=== PATIENT | male | born 1970 | race American Indian/Alaskan Native ===

== ENCOUNTER 2017-11-28 05:13 | Emergency (ER) | payer SELFPAY ==
[2017-11-28] MEDS ORDERED: NORCO 5/325 PO ONE (06:32)
--- NOTE | 2017-11-28 06:36 | Emergency Department Report ---
HPI - General Chief Complaint: Fall Time Seen by Provider: 11/28/17 06:27 - HPI HPI: Room 1 The patient is a 47-year-old male presented with a chief complaint of head pain after fall. The patient states at approximately 03:00 this morning he tripped over a hose and fell forward striking his head concrete. The patient admits to brief loss of consciousness. Patient gets his pain score 8/10. The patient states his last tetanus shot was 2 years ago. Patient denies any other complaints Location: Head Duration: [See above] Quality: Pain Severity: 8/10 Modifying factors: [see above] Context: [see above] Mode of transportation: [not driving] ED Past Medical Hx - Past Medical History Previous Medical History?: Yes Hx Hypertension: Yes - Family History Family history: no significant - Social History Smoking Status: Never Smoker Substance Use Type: None (denies illicit drug use), Alcohol (occasional) - Medications Home Medications: Home Medications Medication Instructions Recorded Confirmed Last Taken Type HYDROcodone/APAP 5-325 [[place] 1 - 2 each PO Q6HR PRN #7 tablet 11/28/17 Unknown Rx 5/325] Ibuprofen [Motrin 800 MG tab] 800 mg PO Q8HR PRN #20 tablet 11/28/17 Unknown Rx ED Review of Systems ROS: Stated complaint: FALL/HEAD LACERATION Other details as noted in HPI Constitutional: no symptoms reported Eyes: denies: eye pain ENT: denies: throat pain Respiratory: no symptoms reported Cardiovascular: denies: chest pain Endocrine: no symptoms reported Gastrointestinal: denies: abdominal pain Genitourinary: denies: dysuria Musculoskeletal: arthralgia Neurological: headache Physical Exam - Physical Exam Vital Signs: Vital Signs 11/28/17 11/28/17 11/28/17 05:38 05:45 06:07 Pulse Rate 72 72 Respiratory 15 15 18 Rate Blood Pressure 143/102 O2 Sat by Pulse 92 99 Oximetry Physical Exam: GENERAL: The patient is well-developed well-nourished male lying on stretcher not appearing to be in acute distress. [] HEENT: Normocephalic. Approximately 2.5 cm laceration to the mid forehead; hemostatic. Extraocular motions are intact. Patient has moist mucous membranes. NECK: Supple. There is no axial step off or tenderness but there is pain with range of motion CHEST/LUNGS: Clear to auscultation. There is no respiratory distress noted. HEART/CARDIOVASCULAR: Regular. There is no tachycardia. There is no gallop rub or murmur. ABDOMEN: Abdomen is soft, nontender. Patient has normal bowel sounds. There is no abdominal distention. SKIN: There is no rash. There is no edema. There is no diaphoresis. 2.5cm laceration to the midforehead NEURO: The patient is awake, alert, and oriented. The patient is cooperative. The patient has normal speech MUSCULOSKELETAL: There is no tenderness or deformity. ED Course Vital Signs 11/28/17 11/28/17 11/28/17 05:38 05:45 06:07 Pulse Rate 72 72 Respiratory 15 15 18 Rate Blood Pressure 143/102 O2 Sat by Pulse 92 99 Oximetry - Laceration /Wound Repair Face Wound Location: head Wound Length (cm): 3 Wound's Depth, Shape: linear Wound Explored: clean Irrigated w/ Saline (ccs): 250 Betadine Prep?: Yes Anesthesia: Lidocaine w/ Epi Volume Anesthetic (ccs): 5 Wound Repaired With: sutures Suture Size/Type: 5:0, nylon Number of Sutures: 4 Layer Closure?: No Sterile Dressing Applied?: Yes ED Medical Decision Making - Radiology Data Radiology results: report reviewed (CT head, CT cervical spine), image reviewed (CT head, CT cervical spine) [address] [address] Cat Scan Report Signed Patient: JHONY WOLF MR#: [id number] : 1970 Acct:[id number] Age/Sex: 47 / M ADM Date: 11/28/17 Loc: ED Attending Dr: Ordering Physician: MELINDA ROLDAN MD Date of Service: 11/28/17 Procedure(s): CT head/brain wo con Accession Number(s): [id number] cc: MELINDA ROLDAN MD FINAL REPORT PROCEDURE: CT HEAD/BRAIN WO CON TECHNIQUE: Computerized tomography of the head was performed without contrast material. HISTORY: S/P fall with poss LOC COMPARISON: No prior studies are available for comparison. FINDINGS: Skull and scalp: There is slight soft tissue swelling the left frontal region of the skull. No skull fracture.. Paranasal sinuses: Normal. Ventricles and subarachnoid spaces: Normal. Cerebrum: No evidence of hemorrhage, acute infarction or mass . Cerebellum and brainstem: No evidence of hemorrhage, acute infarction or mass. Vasculature: Normal. Comments: None. IMPRESSION: There is no evidence of an acute intracranial process. Slight soft tissue swelling over the left frontal region of the skull. Transcribed By: [facility] Dictated By: STERLING REA MD Electronically Authenticated By: STERLING REA MD Signed Date/Time: 11/28/17650 DD/ 0 TD/TT: 11/28/17650 [facility] [address] [place] [address] Cat Scan Report Signed Patient: JHONY WOLF MR#: [id number] : 1970 Acct:[id number] Age/Sex: 47 / M ADM Date: 11/28/17 Loc: ED Attending Dr: Ordering Physician: MELINDA ROLDAN MD Date of Service: 11/28/17 Procedure(s): CT cervical spine wo con Accession Number(s): [id number] cc: MELINDA ROLDAN MD FINAL REPORT EXAM: CT CERVICAL SPINE WO CON HISTORY: neck pain after fall TECHNIQUE: Routine axial imaging was obtained of the cervical spine without IV contrast with sagittal and coronal reconstructions. FINDINGS: There is very mild narrowing of the C4-C5 disc. The remaining disc heights and alignment appear normal. The canal size is normal. The nerve roots exit normally. The facet joints are well maintained. The prevertebral soft tissues and C1-C2 articulation appear intact. IMPRESSION: Minimal arthritic changes of the C4-C5 disc. Otherwise unremarkable exam. Transcribed By: Dictated By: ANKITA EMMANUEL MD Electronically Authenticated By: ANKITA EMMANUEL MD Signed Date/Time: 11/28/17727 DD/ 7 TD/TT: 11/28/17727 - Differential Diagnosis ICH, closed head injury, forehead laceration Critical care attestation.: If time is entered above; I have spent that time in minutes in the direct care of this critically ill patient, excluding procedure time. ED Disposition Clinical Impression: Closed head injury, Forehead laceration, Acute cervical myofascial strain Disposition: - TO HOME OR SELFCARE Is pt being admited?: No Does the pt Need Aspirin: No Condition: Stable Instructions: Laceration (ED), Suture Care (ED) Additional Instructions: Your sutures need to be removed in 3-5 days. Return to the emergency department immediately should you develop worsening symptoms, fever, inability to tolerate food or liquid or any other concerns. Prescriptions: HYDROcodone/APAP 5-325 [[place] 5/325] 1 - 2 each PO Q6HR PRN #7 tablet PRN Reason: Pain Ibuprofen [Motrin 800 MG tab] 800 mg PO Q8HR PRN #20 tablet PRN Reason: Pain, Moderate (4-6) Referrals: PRIMARY CARE, [Primary Care Provider] - 3-5 Days [facility] [Outside] - 3-5 Days Time of Disposition: 07:46
--- NOTE | 2017-11-28 06:52 | Cat Scan Report ---
FINAL REPORT PROCEDURE: CT HEAD/BRAIN WO CON TECHNIQUE: Computerized tomography of the head was performed without contrast material. HISTORY: S/P fall with poss LOC COMPARISON: No prior studies are available for comparison. FINDINGS: Skull and scalp: There is slight soft tissue swelling the left frontal region of the skull. No skull fracture.. Paranasal sinuses: Normal. Ventricles and subarachnoid spaces: Normal. Cerebrum: No evidence of hemorrhage, acute infarction or mass . Cerebellum and brainstem: No evidence of hemorrhage, acute infarction or mass. Vasculature: Normal. Comments: None. IMPRESSION: There is no evidence of an acute intracranial process. Slight soft tissue swelling over the left frontal region of the skull.
--- NOTE | 2017-11-28 07:28 | Cat Scan Report ---
FINAL REPORT EXAM: CT CERVICAL SPINE WO CON HISTORY: neck pain after fall TECHNIQUE: Routine axial imaging was obtained of the cervical spine without IV contrast with sagittal and coronal reconstructions. FINDINGS: There is very mild narrowing of the C4-C5 disc. The remaining disc heights and alignment appear normal. The canal size is normal. The nerve roots exit normally. The facet joints are well maintained. The prevertebral soft tissues and C1-C2 articulation appear intact. IMPRESSION: Minimal arthritic changes of the C4-C5 disc. Otherwise unremarkable exam.
[2017-11-28] MEDS ORDERED: XYLOCAINE 2%/EPI 1:100,000 INFILTRATI ONE (07:30)
[2017-11-28] MEDS ORDERED: NACL 0.9% 500 ML IR ONE (07:31)
[2017-11-28] MEDS ORDERED: TRIPLE ANTIBIOTIC TP ONE (07:49)
[2017-11-28 08:08] VITALS: BP 139/98
== END 2017-11-28 08:08 | disposition home or self-care (01) ==
LOC: ED 05:13
DX: S01.81XA Laceration without foreign body of other part of head, initial encounter (principal); S16.1XXA Strain of muscle, fascia and tendon at neck level, initial encounter; I10 Essential (primary) hypertension; W01.0XXA Fall on same level from slipping, tripping and stumbling without subsequent striking against object, initial encounter; Y93.89 Activity, other specified; Y92.89 Other specified places as the place of occurrence of the external cause; Y99.8 Other external cause status
CPT/HCPCS: 70450; 72125; 99284; A6250